=== PATIENT | male | born 1995 | race Caucasian/White ===

== ENCOUNTER 2017-09-22 11:47 | Day surgery (SDC) | payer OTHER ==
[2017-09-22] MEDS ORDERED: MIDAZOLAM 1 MG/ML 2 ML INJ ×2 (14:21)
[2017-09-22] MEDS ORDERED: FENTAnyl 50 MCG/ML VIAL (14:21)
== END 2017-09-22 18:30 | disposition home or self-care (01) ==
LOC: GIL 11:47
DX: K21.9 Gastro-esophageal reflux disease without esophagitis (principal); K44.9 Diaphragmatic hernia without obstruction or gangrene; K29.70 Gastritis, unspecified, without bleeding; F17.200 Nicotine dependence, unspecified, uncomplicated
CPT/HCPCS: 43239; 87081